=== PATIENT | male | born 1995 | race African-American/Black ===

== ENCOUNTER 2017-10-14 14:45 | Emergency (ER) | payer BC ==
[~2017-10-14] VITALS: Ht 167.6 cm; Wt 69.4 kg
[2017-10-14 14:56] VITALS: TEMP 36.8; Ht 167.6 cm; Wt 69.4 kg
--- NOTE | 2017-10-14 16:14 | EMERGENCY ROOM VISIT NOTE ---
History Report prepared by Levy: Wood Prakash Under the Supervision of: Dr. Iron Pandya M.D. First contact with patient: 16:07 Chief Complaint: ABDOMINAL PAIN Stated Complaint: STOMACH PAIN, LOWER LEFT SIDE Nursing Triage Summary: Pt reports left sided abd pain that started this morning. States, "It started in my bladder then moved." Denies urinary s/sx or n/v/d/c. History of Present Illness The patient is a 22 year old male who presents to the Emergency Room with complaints of waxing and waning abdominal pain that started upon waking this morning. He states that he had bad pain in his lower abdomen this morning, and after having a bowel movement, the pain started to get a bit better. He notes that he had to push hard to have the bowel movement, but there was no blood. The patient says that he then went to class, and while walking back from class, he started to have worsening pain in his left lower quadrant. The patient says that the pain is only a 1 out of 10 in severity currently, but it is always there. He states that he has no history of abdominal surgeries, and still has his appendix and gallbladder. The patient denies any urinary symptoms. He says that he has not taken any medications for the pain. He says that he has no family history of gallbladder problems. He states that his parents know that he is here and he does not want me to call his parents at this time. Source of History: patient Onset: This morning Position: abdomen Timing: waxes/wanes Modifying Factors (Relieving): other (having bowel movement) Associated Symptoms: No hematochezia, No urinary symptoms Note: Had to push hard to have bowel movement. Review of Systems See HPI for pertinent positives & negatives. A total of 10 systems reviewed and were otherwise negative. Past Medical & Surgical Medical Problems: (1) No chronic diseases present Family History No pertinent family history Social History Smoking Status: Never Smoker Marital Status: single Housing Status: lives with roommate Occupation Status: [employer] student Current/Historical Medications No Active Prescriptions or Reported Meds Allergies Coded Allergies: No Known Allergies (Unverified , 10/14/17) Physical Exam Vital Signs Date Time Temp Pulse Resp B/P (MAP) Pulse Ox O2 Delivery O2 Flow Rate FiO2 10/14/17 17:14 60 20 128/68 99 Room Air 10/14/17 16:25 78 18 119/71 99 Room Air 10/14/17 14:56 36.8 68 18 128/71 98 Room Air Physical Exam GENERAL: Patient is a healthy-appearing well-nourished 22 year old male. HEAD: Normocephalic atraumatic EYES: Ocular movements intact pupils equal and react to light OROPHARYNX mucous membranes are moist no exudates present no erythema or edema present NECK: Supple no nuchal rigidity CHEST: Good equal expansion LUNGS: Clear and equal to auscultation CARDIAC: Normal S1 and S2 ABDOMEN: Soft nontender no guarding BACK: No CVA tenderness EXTREMITIES: No pain upon palpation normal muscle strength in all groups no clubbing cyanosis or edema NEURO: Patient is following commands and answering questions appropriately. Alert and oriented x3 Cranial Nerves 2-12 grossly intact Medical Decision & Procedures ER Provider Diagnostic Interpretation: CT results as stated below per my review and radiologist interpretation: ABD/PELVIS WITHOUT FOR STONE CT DOSE: 632.00 mGy.cm HISTORY: Flank pain Pt c/o LLQ abd pain TECHNIQUE: Multiaxial CT images of the abdomen and pelvis were performed without the use of intravenous and oral contrast according to the standard department stone protocol. A dose lowering technique was utilized adhering to the principles of ALARA. COMPARISON STUDY: None. FINDINGS: The lung bases are clear. The unenhanced liver, gallbladder, spleen, pancreas, and adrenal glands are unremarkable. No renal stones or hydronephrosis. No bowel wall thickening or obstruction. The pelvic organs are unremarkable. No suspicious lytic or blastic osseous lesions. IMPRESSION: No renal stones or hydronephrosis. Negative study. The above report was generated using voice recognition software. It may contain grammatical, syntax or spelling errors. Electronically signed by: Zeyad Cerda M.D. 10/14/2017 5:14 PM Dictated Date/Time: 10/14/2017 5:12 PM Laboratory Results 10/14/17 16:25 Red Blood Count 5.09, Mean Corpuscular Volume 88.2, Mean Corpuscular Hemoglobin 29.7, Mean Corpuscular Hemoglobin Concent 33.6, Mean Platelet Volume 10.5, Neutrophils (%) (Auto) 55.1, Lymphocytes (%) (Auto) 35.6, Monocytes (%) (Auto) 7.1, Eosinophils (%) (Auto) 0.9, Basophils (%) (Auto) 0.3, Neutrophils # (Auto) 4.22, Lymphocytes # (Auto) 2.72, Monocytes # (Auto) 0.54, Eosinophils # (Auto) 0.07, Basophils # (Auto) 0.02 10/14/17 16:25 Test 10/14/17 16:25 10/14/17 17:10 White Blood Count 7.65 K/uL (4.8-10.8) Red Blood Count 5.09 M/uL (4.7-6.1) Hemoglobin 15.1 g/dL (14.0-18.0) Hematocrit 44.9 % (42-52) Mean Corpuscular Volume 88.2 fL (80-100) Mean Corpuscular Hemoglobin 29.7 pg (25-34) Mean Corpuscular Hemoglobin Concent 33.6 g/dl (32-36) Platelet Count 254 K/uL (130-400) Mean Platelet Volume 10.5 fL (7.4-10.4) Neutrophils (%) (Auto) 55.1 % Lymphocytes (%) (Auto) 35.6 % Monocytes (%) (Auto) 7.1 % Eosinophils (%) (Auto) 0.9 % Basophils (%) (Auto) 0.3 % Neutrophils # (Auto) 4.22 K/uL (1.4-6.5) Lymphocytes # (Auto) 2.72 K/uL (1.2-3.4) Monocytes # (Auto) 0.54 K/uL (0.11-0.59) Eosinophils # (Auto) 0.07 K/uL (0-0.5) Basophils # (Auto) 0.02 K/uL (0-0.2) RDW Standard Deviation 46.6 fL (36.4-46.3) RDW Coefficient of Variation 14.4 % (11.5-14.5) Immature Granulocyte % (Auto) 1.0 % Immature Granulocyte # (Auto) 0.08 K/uL (0.00-0.02) Anion Gap 5.0 mmol/L (3-11) Est Creatinine Clear Calc Drug Dose 91.7 ml/min Estimated GFR () 106.0 Estimated GFR (Non- 91.5 BUN/Creatinine Ratio 7.1 (10-20) Calcium Level 9.1 mg/dl (8.5-10.1) Total Bilirubin 0.7 mg/dl (0.2-1) Direct Bilirubin 0.2 mg/dl (0-0.2) Aspartate Amino Transf (AST/SGOT) 21 U/L (15-37) Alanine Aminotransferase (ALT/SGPT) 88 U/L (12-78) Alkaline Phosphatase 56 U/L (45-117) Total Protein 7.9 gm/dl (6.4-8.2) Albumin 4.1 gm/dl (3.4-5.0) Lipase 109 U/L (73-393) Urine Color YELLOW Urine Appearance CLEAR (CLEAR) Urine pH 8.0 (4.5-7.5) Urine Specific Elizabeth 1.024 (1.000-1.030) Urine Protein NEG (NEG) Urine Glucose (UA) NEG (NEG) Urine Ketones TRACE (NEG) Urine Occult Blood NEG (NEG) Urine Nitrite NEG (NEG) Urine Bilirubin NEG (NEG) Urine Urobilinogen NEG (NEG) Urine Leukocyte Esterase TRACE (NEG) Urine WBC (Auto) 5-10 /hpf (0-5) Urine RBC (Auto) 0-4 /hpf (0-4) Urine Hyaline Casts (Auto) 1-5 /lpf (0-5) Urine Epithelial Cells (Auto) 20-30 /lpf (0-5) Urine Bacteria (Auto) NEG (NEG) Labs reviewed by ED physician. Medications Administered Medications (Trade) Dose Ordered Sig/Juan Pablo Route Start Time Stop Time Status Last Admin Dose Admin Magnesium Citrate (Citrate Of Magnesia Soln) 296 ml NOW STAT PO 10/14/17 17:18 10/14/17 17:20 DC 10/14/17 17:28 296 ML ED Course 1607: Past medical records reviewed. The patient was evaluated in room B2. A complete history and physical examination was performed. 1717: Upon reexamination the patient is resting comfortably. I discussed results and treatment plan with the patient. He verbalizes agreement and understanding. The patient is ready for discharge. 1718: Ordered Citrate of Magnesia Soln 296 ml PO. Medical Decision Differential diagnosis: Etiologies such as appendicitis, diverticulitis, PUD, biliary pathology, UTI, pancreatitis, obstruction, mesenteric ischemia, aortic pathology, infections, inflammatory bowel disease, renal colic, as well as others were entertained. I offered to call this patient's parents numerous times however he refused. This patient presents with left lower quadrant abdominal pain patient is nontender on examination. Serial abdominal examinations were performed on this patient in the emergency department and no tended patient exhibit surgical abdomen. In addition moving his bowels somewhat relieved his pain and I suspect based on the CAT scan of the abdomen pelvis at the patient is constipated. In addition he does not appear to have an elevation in his white blood count cell count and has a normal renal profile liver profile lipase as well as urine. Based on these findings I felt that the patient can be safely discharged home. I recommended magnesium citrate. Patient was in agreement with the treatment plan. Medication Reconcilliation Current Medication List: was personally reviewed by me Blood Pressure Screening Patient's blood pressure: Normal blood pressure Impression Primary Impression: Abdominal pain Additional Impression: Constipation Scribe Attestation The scribe's documentation has been prepared under my direction and personally reviewed by me in its entirety. I confirm that the note above accurately reflects all work, treatment, procedures, and medical decision making performed by me. Departure Information Dispostion Home / Self-Care Prescriptions No Active Prescriptions or Reported Meds Referrals No Doctor, Assigned (PCP) Forms HOME CARE DOCUMENTATION FORM, IMPORTANT VISIT INFORMATION, School Instructions, Work Instructions Patient Instructions ED Abdominal Pain Unkn Cause Male, ED Constipation, My [facility] Additional Instructions Take half bottle magnesium citrate Repeat second half in 6 hours Clear liquid diet for the next 48 hours You have been examined and treated today on an emergency basis only. This is not a substitute for, or an effort to provide, complete comprehensive medical care. It is impossible to recognize and treat all injuries or illnesses in a single emergency department visit. It is therefore important that you follow up closely with [facility]. Call as soon as possible for an appointment. Thank you for your time and consideration. I look forward to speaking with you again soon. Please don't hesitate to call us if you have any questions. Problem Qualifiers Primary Impression: Abdominal pain Abdominal location: left lower quadrant Qualified Codes: R10.32 - Left lower quadrant pain Additional Impression: Constipation Constipation type: unspecified constipation type Qualified Codes: K59.00 - Constipation, unspecified
[2017-10-14 16:35] LABS: BASO % 0.3 %; BASO ABS # 0.02 K/uL (0-0.2); EOS % 0.9 %; EOS ABS # 0.07 K/uL (0-0.5); HEMATOCRIT 44.9 % (42-52); HEMOGLOBIN 15.1 g/dL (14.0-18.0); IG# 0.08 K/uL (0.00-0.02); LYMPH % 35.6 %; LYMPH ABS # 2.72 K/uL (1.2-3.4); MEAN CELL VOLUME 88.2 fL (80-100); MEAN CORPUSCULAR HEMOGLOBIN 29.7 pg (25-34); MEAN CORPUSCULAR HGB CONC 33.6 g/dl (32-36); MEAN PLATELET VOLUME 10.5 fL (7.4-10.4); MONO % 7.1 %; MONO ABS # 0.54 K/uL (0.11-0.59); NEUT % 55.1 %; NEUT ABS # 4.22 K/uL (1.4-6.5); PLATELET COUNT 254 K/uL (130-400); RED CELL DISTRIBUTION WIDTH CV 14.4 % (11.5-14.5); RED CELL DISTRIBUTION WIDTH SD 46.6 fL (36.4-46.3); WHITE BLOOD COUNT 7.65 K/uL (4.8-10.8)
[2017-10-14 16:53] LABS: ALBUMIN 4.1 gm/dl (3.4-5.0); CALCIUM 9.1 mg/dl (8.5-10.1); CREATININE 1.12 mg/dl (0.60-1.40); POTASSIUM 4.1 mmol/L (3.5-5.1)
[2017-10-14 16:55] LABS: TOTAL PROTEIN 7.9 gm/dl (6.4-8.2)
[2017-10-14 17:14] VITALS: BP 128/68; PULSE 60; O2SAT 99
--- NOTE | 2017-10-14 17:15 | DIAGNOSTIC IMAGING REPORT ---
ABD/PELVIS WITHOUT FOR STONE CT DOSE: 632.00 mGy.cm HISTORY: Flank pain Pt c/o LLQ abd pain TECHNIQUE: Multiaxial CT images of the abdomen and pelvis were performed without the use of intravenous and oral contrast according to the standard department stone protocol. A dose lowering technique was utilized adhering to the principles of ALARA. COMPARISON STUDY: None. FINDINGS: The lung bases are clear. The unenhanced liver, gallbladder, spleen, pancreas, and adrenal glands are unremarkable. No renal stones or hydronephrosis. No bowel wall thickening or obstruction. The pelvic organs are unremarkable. No suspicious lytic or blastic osseous lesions. IMPRESSION: No renal stones or hydronephrosis. Negative study. The above report was generated using voice recognition software. It may contain grammatical, syntax or spelling errors. Electronically signed by: Zeyad eCrda M.D. 10/14/2017 5:14 PM Dictated Date/Time: 10/14/2017 5:12 PM
[2017-10-14] MEDS ORDERED: MAGNESIUM CITRATE 296 ML/BTL PO STA (17:18)
== END 2017-10-14 17:39 | disposition home or self-care (01) ==
LOC: C.EDB 14:47
DX: R10.32 Left lower quadrant pain (principal); K59.00 Constipation, unspecified